=== PATIENT | female | born 1985 | race Two or more races ===

== ENCOUNTER 2020-06-03 12:35 | Emergency (ER) | payer MEDICAID, OTHER ==
[~2020-06-03] VITALS: Ht 172.7 cm; Wt 55.0 kg
[2020-06-03 14:51] LABS: BASOPHILS % 0.8 % (0.0-2.0); EOSINOPHILS % 0.5 % (0.0-5.0); HEMATOCRIT. 41.8 % (36.0-48.0); HEMOGLOBIN. 14.2 g/dL (12.0-16.0); LYMPHOCYTES % 8.4 % (20.0-50.0); MEAN CORPUSCULAR HEMOGLOBIN 37.1 pg (28.0-32.0); MEAN CORPUSCULAR VOLUME 109.1 fL (81.0-99.0); MEAN PLATELET VOLUME 8.5 fl (7.4-10.4); MONOCYTES % 10.4 % (2.0-8.0); NEUTROPHILS % 79.9 % (40.0-76.0); PLATELET 243 x1000/uL (130-400); RED BLOOD CELL COUNT 3.83 mill/uL (4.2-5.4); RED CELL DISTRIBUTION WIDTH 13.8 % (11.6-14.6)
[2020-06-03 15:06] LABS: CHLORIDE 107 mEq/L (98-107)
[2020-06-03 15:11] LABS: PHOSPHORUS 2.5 mg/dL (2.5-4.9)
[2020-06-03 15:14] LABS: HCG SCREEN NEGATIVE
[2020-06-03 15:38] LABS: CLARITY URINE CLOUDY (CLEAR); COLOR URINE YELLOW (YELLOW); KETONES URINE NEGATIVE (NEGATIVE); LEUKOCYTE ESTERASE URINE TRACE (NEGATIVE); NITRITE URINE POSITIVE (NEGATIVE); OCCULT BLOOD URINE NEGATIVE (NEGATIVE); PH URINE 7.5 (4.5-8.0); PROTEIN URINE TRACE (NEGATIVE); SPECIFIC GRAVITY URINE 1.019 (1.005-1.030); UROBILINOGEN URINE 0.2 E.U./dL (0.2-1.0)
[2020-06-03] MEDS ORDERED: LEVETIRACETAM 500MG PREMIX 100 ML IV ONE (19:30)
[2020-06-03] MEDS ORDERED: LIDOCAINE 1%/EPI 1:100,000 10 ML VIAL IJ ONE (19:30)
[2020-06-03] MEDS ORDERED: TETANUS, DIPHTHERIA, PERTUSSIS VAC/PF 0.5ML (>7YR OLD) IM ONE (19:30)
[2020-06-03] MEDS ORDERED: SODIUM CHLORIDE 0.9% 1,000 ML IV ONE (19:30)
[2020-06-03] MEDS ORDERED: KETOROLAC 30MG/ML VIAL IV ONE (19:45)
[2020-06-03] MEDS ORDERED: CEFTRIAXONE 1 G PREMIX 50 ML IV ONE (19:45)
[2020-06-03] MEDS ORDERED: LIDOCAINE HCL/EPINEPHRINE 1%-EPI 1:100,000 20 ML VIAL INFIL NR (20:22)
[2020-06-03 22:45] VITALS: BP 131/81
== END 2020-06-03 22:45 | disposition home or self-care (01) ==
LOC: ER 12:35
DX: R56.9 Unspecified convulsions (principal); S01.412A Laceration without foreign body of left cheek and temporomandibular area, initial encounter; W18.30XA Fall on same level, unspecified, initial encounter; Y93.89 Activity, other specified; Y92.89 Other specified places as the place of occurrence of the external cause; Y99.8 Other external cause status
CPT/HCPCS: 12013; 36415; 70450; 70486; 80053; 81003; 81025; 83735; 84100; 84703; 85025; 90471; 90715; 93005; 96365; 96367; 96375; 99285; J0696; J1885; J1953; J3490; J7030

== ENCOUNTER 2020-06-14 14:07 | Emergency (ER) | payer OTHER ==
[~2020-06-14] VITALS: Ht 157.5 cm; Wt 77.0 kg
[2020-06-14 14:09] VITALS: BP 147/92
== END 2020-06-14 14:36 | disposition home or self-care (01) ==
LOC: ER 14:07
DX: Z48.02 Encounter for removal of sutures (principal)
CPT/HCPCS: 99281

== ENCOUNTER 2021-06-09 16:49 | Emergency (ER) | payer OTHER ==
[~2021-06-09] VITALS: Ht 165.1 cm; Wt 64.0 kg
[2021-06-09 16:59] VITALS: BP 128/72
== END 2021-06-09 20:11 | disposition home or self-care (01) ==
LOC: ER 16:49
DX: F10.20 Alcohol dependence, uncomplicated (principal); Z86.59 Personal history of other mental and behavioral disorders; Y90.9 Presence of alcohol in blood, level not specified
CPT/HCPCS: 99283

== ENCOUNTER 2022-01-06 11:35 | Emergency (ER) | payer OTHER ==
[~2022-01-06] VITALS: Ht 160 cm; Wt 74.0 kg
[2022-01-06 14:35] LABS: BASOPHILS % 0.4 % (0.0-2.0); EOSINOPHILS % 0.9 % (0.0-5.0); HEMOGLOBIN. 12.4 g/dL (12.0-16.0); MEAN CORPUSCULAR HEMOGLOBIN 35.9 pg (28.0-32.0); MEAN CORPUSCULAR VOLUME 104.2 fL (81.0-99.0); MEAN PLATELET VOLUME 8.7 fl (7.4-10.4); MONOCYTES % 10.1 % (2.0-8.0); NEUTROPHILS % 72.6 % (40.0-76.0); PLATELET 223 x1000/uL (130-400); RED BLOOD CELL COUNT 3.46 mill/uL (4.2-5.4); RED CELL DISTRIBUTION WIDTH 13.3 % (11.6-14.6)
[2022-01-06 14:37] LABS: CHLORIDE 106 mEq/L (98-107)
[2022-01-06 14:40] LABS: HCG SCREEN NEGATIVE
[2022-01-06 14:48] LABS: ETHANOL BLOOD 119 mg/dL
[2022-01-06 16:59] VITALS: BP 135/81
== END 2022-01-06 17:41 | disposition home or self-care (01) ==
LOC: ER 12:16
DX: F10.229 Alcohol dependence with intoxication, unspecified (principal); I10 Essential (primary) hypertension; G40.909 Epilepsy, unspecified, not intractable, without status epilepticus; E78.00 Pure hypercholesterolemia, unspecified; J45.909 Unspecified asthma, uncomplicated; Y90.5 Blood alcohol level of 100-119 mg/100 ml; Z98.890 Other specified postprocedural states
CPT/HCPCS: 36415; 80053; 80320; 81025; 84703; 85025; 99283; G0480